=== PATIENT | male | born 1950 | race Caucasian/White ===

== ENCOUNTER 2016-09-08 09:34 | Emergency (ER) | payer OTHER, MEDICAID ==
[~2016-09-08] VITALS: Ht 170.2 cm; Wt 94.0 kg
[~2016-09-08 09:34] MED LIST: ASP81 PO; DOXA2TAB61 PO; FLUT16SP17 NASAL; IBUP800T25 PO; LORA10TA PO; OMEP20CA16 PO
[2016-09-08 09:50] VITALS: Ht 170.2 cm; Wt 94.0 kg
[2016-09-08] MEDS ORDERED: UDROBDM PO (10:17)
[2016-09-08] MEDS ORDERED: HYDR-902 PO (10:18)
[2016-09-08] MEDS ORDERED: ACET500C5 PO (10:19)
--- NOTE | 2016-09-08 10:26 | ERD ---
ER Documentation Chief Complaint Date/Time DATE: 09/08/16 TIME: 10:22 Chief Complaint COUGH, SORE THROAT, HEADACHE X3 DAYS HPI This 65-year-old male who presents to emergency department today leading of cough, sore throat and headache for the past 3 days. Patient states he couldn't take well. Denies any fevers or chills. States that her daughter is sick with the flu. States he thinks he has the flu. States he has taken some Naprosyn. ROS All systems reviewed and are negative except as per history of present illness. Medications Home Meds Active Scripts Acetaminophen* (Tylophen*) 500 Mg Capsule, 1 CAP PO Q6H Y for PAIN AND OR ELEVATED TEMP, #30 CAP Prov:VARGHESE GUILLAUME PA-C 09/08/16 Hydrocodone/Acetaminophen ([place] 10-325 Tablet) 1 Each Tablet, 1 TAB PO Q6H Y for PAIN, #10 TAB Prov:VARGHESE GUILLAUME PA-C 09/08/16 Guaifenesin-Dextromethorphan* (Robitussin* DM) 100MG/10MG/5ML Syrup, 10 ML PO Q4H Y for COUGH for 5 Days, ML Prov:VARGHESE GUILLAUME PA-C 09/08/16 Aspirin (Aspirin) 81 Mg Chew, 81 MG PO DAILY, #30 TAB.CHEW Prov:SITA TORRES 10/07/15 Reported Medications Fluticasone Propionate* (Fluticasone Propionate* Nasal) 50 Mcg/[place] - 16 Gm [place].susp, 1 SPRAY NASAL DAILY, #1 BOTTLE TO EACH NOSTRIL 10/07/15 Ibuprofen* (Motrin*) 800 Mg Tab, 800 MG PO Q8 Y for PAIN LEVEL 6-10, TAB 10/07/15 Omeprazole* (Omeprazole*) 20 Mg Capsule.dr, 20 MG PO DAILY 03/19/13 Loratadine (Loratadine) 10 Mg Tablet, 10 MG PO DAILY 03/19/13 Doxazosin Mesylate* (Cardura*) 2 Mg Tablet, 2 MG PO DAILY 03/19/13 Allergies Allergies: Coded Allergies: No Known Allergies (Verified Allergy, Mild, 09/25/13) PMhx/Soc History of Surgery: Yes (GALL BLADDER,HIP REPLACEMENT) Anesthesia Reaction: No Hx Neurological Disorder: No Hx Respiratory Disorders: No Hx Cardiac Disorders: No Hx Psychiatric Problems: No Hx Miscellaneous Medical Probl: Yes (PROSTATE) Hx Alcohol Use: No Hx Substance Use: No Hx Tobacco Use: No Physical Exam Vitals Vital Signs Date Time Temp Pulse Resp B/P Pulse Ox O2 Delivery O2 Flow Rate FiO2 09/08/16 09:50 98.1 81 18 125/69 96 Physical Exam Const: No acute distress, laughing Head: Atraumatic Eyes: Normal Conjunctiva ENT: Ears TMs normal. Nose no drainage. Throat with mild erythema no exudate Neck: Full range of motion..~ No meningismus. Resp: Clear to auscultation bilaterally. No absent breath sounds. No wheezing. Cardio: Regular rate and rhythm, no murmurs Abd: Soft, non tender, non distended. Normal bowel sounds Skin: No petechiae or rashes Back: No midline or flank tenderness Ext: No cyanosis, or edema Neur: Awake and alert Psych: Normal Mood and Affect Procedures/MDM Is a 65-year-old male who presents to the emergency department today with flulike symptoms versus viral URI. Patient has been exposed to flu by his daughter. On physical exam patient is afebrile and otherwise well-appearing. He is laughing in the exam room. His respirations are 18 and his oxygen saturation is 96%. Do not fill the patient requires further laboratory workup or imaging. I have low suspicion for strep pharyngitis, peritonsillar abscess, retropharyngeal abscess, otitis media, PNA, sinusitis, abscess, meningitis, sepsis, or other acute infectious bacterial process. Patient has a prescription for Naprosyn and has already been taking on therefore did give blood short course of [place] for home. He was instructed to take that for severe headache or pain or continue taking Naprosyn or Tylenol. I have also given a prescription for Robitussin. She has had these symptoms for 3 days and I feel that he is out of the window to prescribe Tamiflu at this time. I have explained this to the patient. At this time the patient is stable for discharge and outpatient management. Patient should follow up with their PCP in the next 1-2 days. They may return to the emergency department sooner for any persistent or worsening of symptoms. Patient understood and agreed with the plan. Departure Diagnosis: Primary Impression: Flu-like symptoms Condition: Fair Patient Instructions: Influenza (Adult) Additional Instructions: Llame al doctor MAANA y maria del carmen griselda HONG PARA DENTRO DE 1-2 HA.Dgale a la secretaria que nosotros le instruimos hacer esta hong.Avise o llame si jaramillo condicin se empeora antes de la hong. Regresa aqui si peor o no mejor. Take [place] for severe pain otherwise take Tylenol or Naprosyn that you already have Take Robitussin for cough VARGHESE GUILLAUME PA-C Sep 08, 2016 10:26
== END 2016-09-08 10:38 | disposition home or self-care (01) ==
LOC: FTE 09:34
DX: R05 Cough (principal); J02.9 Acute pharyngitis, unspecified; R51 Headache; Z79.82 Long term (current) use of aspirin; Z96.649 Presence of unspecified artificial hip joint
CPT/HCPCS: 99283

== ENCOUNTER 2017-05-02 17:58 | Emergency (ER) | payer OTHER, MEDICAID ==
[~2017-05-02] VITALS: Ht 177.8 cm; Wt 112.0 kg
[~2017-05-02 17:58] MED LIST changes: +ACET500C5 PO; -ASP81 PO; +ASPI81TA3 PO; +HYDR-902 PO; +UDROBDM PO
[2017-05-02 18:03] VITALS: Ht 177.8 cm; Wt 112.0 kg
[2017-05-02] MEDS ORDERED: ASPIRIN 325 MG TAB PO STA (20:59)
[2017-05-02] MEDS ORDERED: MULT-40 PO (21:28)
[2017-05-02 21:47] VITALS: BP 144/80; PULSE 78; RESP 17; TEMP 98.3
[2017-05-02 21:53] LABS: BASOPHILS % 0.5 % (0.0-2.0); EOSINOPHILS # 0.2 10^3/ul (0.0-0.5); EOSINOPHILS % 2.2 % (0.0-7.0); HEMATOCRIT 44.3 % (42.0-52.0); LYMPHOCYTES # 2.9 10^3/ul (0.8-2.9); LYMPHOCYTES % 35.9 % (15.0-51.0); MEAN CORPUSCULAR HEMOGLOBIN 29.6 pg (29.0-33.0); MEAN CORPUSCULAR HGB CONC 33.9 g/dl (32.0-37.0); MEAN CORPUSCULAR VOLUME 87.5 fl (82.0-101.0); MEAN PLATELET VOLUME 10.6 fl (7.4-10.4); MONOCYTE # 0.7 10^3/ul (0.3-0.9); NEUTROPHILS % 52.2 % (39.0-77.0); PLATELET COUNT 223 10^3/UL (140-415); RED BLOOD COUNT 5.06 10^6/ul (4.70-6.10); RED CELL DISTRIBUTION WIDTH 12.9 % (11.5-14.5); WHITE BLOOD COUNT 8.2 10^3/ul (4.8-10.8)
[2017-05-02 22:15] LABS: ANION GAP 17 (8-16); BLOOD UREA NITROGEN 13 mg/dl (7-20); CALCIUM 9.3 mg/dl (8.4-10.2); CARBON DIOXIDE 24 mmol/L (21-31); CHLORIDE 103 mmol/L (97-110); CREATININE 0.68 mg/dl (0.61-1.24); GLUCOSE 94 mg/dl (70-220); SODIUM 140 mmol/L (135-144)
[2017-05-02] MEDS ORDERED: LIDOCAINE/MYLANTA 40 ML BTL PO ONE (22:30)
--- NOTE | 2017-05-03 04:24 | RADRPT ---
PROCEDURE: XR Chest. CLINICAL INDICATION: Chest pain TECHNIQUE: AP Portable chest. COMPARISON: 10/07/2015 chest x-ray FINDINGS: The soft tissues and bones are normal. No focal infiltrates, masses or effusions are present. The mediastinum and the heart size are normal. No focal infiltrates, masses, or effusions are noted. T he mediastinum and heart are normal. No pneumothorax is present. IMPRESSION: 1. No radiographic evidence for acute cardiopulmonary disease RPTAT: HDC .Candice Avalos MD, MD Date Time Electronically viewed and signed by .Candice Avalos MD, MD on 05/02/2017 22:34 .C/
[2017-05-03 05:22] LABS: B-TYPE NATRIURETIC PEPTIDE 29 PG/ML (0-125)
--- NOTE | 2017-05-03 06:10 | ERD ---
DATE OF SERVICE: 05/02/2017 HISTORY OF PRESENT ILLNESS: This 66-year-old male presented for potential chest pain described as a sharp pain that had been present for 12 hours. He has no shortness of breath and no nausea. He denies any cardiac risk factors. He has a regular primary care doctor that he sees, but does not have hypertension, hypercholesterolemia, or diabetes. He has never smoked cigarettes. No cough. REVIEW OF SYSTEMS: Twelve point review of systems negative except as in HPI. PAST MEDICAL HISTORY: Negative. PAST SURGICAL HISTORY: Negative. FAMILY HISTORY: Noncontributory. SOCIAL HISTORY: Denies tobacco, alcohol, or drugs. PHYSICAL EXAMINATION: VITAL SIGNS: Afebrile, vital signs stable. GENERAL: No acute distress, smiling and pleasant. CARDIOVASCULAR: Regular rate and rhythm. No murmurs. LUNGS: Clear to auscultation bilaterally. ABDOMEN: Soft, nontender, nondistended. No masses. SKIN: No rashes or lesions. NEURO: Alert and oriented x3, no focal deficits. EXTREMITIES: No cyanosis, clubbing, or edema. Distal pulses intact all 4 extremities. MEDICAL DECISION MAKING/EMERGENCY DEPARTMENT COURSE: Chest x-ray interpretation: I see no acute process. I see no widened mediastinum, no infiltrate, no pulmonary edema, no fractures. EKG interpretation: Normal sinus rhythm, rate of 79, normal axis, normal intervals, no ST or T-wave changes concerning for acute ischemia. Normal EKG. Laboratory analysis: The patient's laboratories are within normal limits and troponin is not detectable in his blood. Because he has had this chest pain for greater than 12 hours, it is unlikely to be cardiac in origin, especially in a patient with no risk factors except for age. He was given 325 mg aspirin in the ER. I am going to discharge him with primary care followup in the next few days and instructions to call his doctor to get an appointment for an outpatient echocardiogram. I am discharging him with Zantac. DISCHARGE DIAGNOSIS: Chest pain. DISPOSITION: Home in stable condition. Dictated By: Roosevelt Gallego DO /veronica/salma /Document#: [id number]
[2017-05-03 06:39] LABS: TROPONIN-I < 0.012 ng/ml (0.00-0.12)
== END 2017-05-03 06:43 | disposition home or self-care (01) ==
LOC: E/R 17:58
DX: R07.9 Chest pain, unspecified (principal)
CPT/HCPCS: 36415; 71010; 80048; 83880; 84484; 85025; 93005

== ENCOUNTER 2018-11-04 08:46 | Emergency (ER) | payer OTHER, MEDICAID ==
[~2018-11-04] VITALS: Wt 88.1 kg
[~2018-11-04 08:46] MED LIST changes: -ACET500C5 PO; -ASPI81TA3 PO; -FLUT16SP17 NASAL; -HYDR-902 PO; -IBUP800T25 PO; -LORA10TA PO; -OMEP20CA16 PO; -UDROBDM PO; +[UNRECOGNIZED DRUG - CODE] PO
[2018-11-04 08:48] VITALS: BP 131/73; PULSE 93; RESP 20
[2018-11-04] MEDS ORDERED: KETOROLAC 30 MG INJ IM STA (09:51)
[2018-11-04] MEDS ORDERED: IBUP-1542 PO (09:52)
[2018-11-04] MEDS ORDERED: ALBU8.5H8 INH (09:52)
--- NOTE | 2018-11-04 10:25 | ERD ---
ER Documentation Chief Complaint Chief Complaint cough, back pain, sore throat, fever, see note HPI 67-year-old man complains of 2 days of sore throat, congestion, mild cough symptoms began mostly last night. He has some body aches as well but denies fevers or chills, no shortness of breath, no chest pain, no abdominal pain, no vomiting or diarrhea. Patient denies recent travel or sick contacts. ROS All systems reviewed and are negative except as per history of present illness. Medications Home Meds Active Scripts Albuterol Sulfate* (Proair HFA*) 8.5 Gm Hfa.aer.ad, 2 PUFF INH Q6H PRN for WHEEZING AND SOB, #1 INHALER Prov:MERLENE LEWIS MD 11/04/18 Ibuprofen* (Motrin*) 600 Mg Tab, 600 MG PO Q8 PRN for PAIN AND/OR INFLAMMATION, #30 TAB Prov:MERLENE LEWIS MD 11/04/18 Reported Medications Multivitamin with Iron (Multivitamins with Iron) 1 Each Tablet, 1 EACH PO DAILY, TAB 05/02/17 Doxazosin Mesylate* (Cardura*) 2 Mg Tablet, 2 MG PO DAILY 03/19/13 Allergies Allergies: Coded Allergies: No Known Allergies (Verified Allergy, Mild, 05/02/17) PMhx/Soc History of Surgery: Yes (GALL BLADDER,HIP REPLACEMENT) Anesthesia Reaction: No Hx Neurological Disorder: No Hx Respiratory Disorders: No Hx Cardiac Disorders: Yes (HTN) Hx Psychiatric Problems: No Hx Miscellaneous Medical Probl: Yes (PROSTATE) Hx Alcohol Use: No Hx Substance Use: No Hx Tobacco Use: No Smoking Status: Former smoker FmHx Family History: No diabetes Physical Exam Vitals Vital Signs Date Temp Pulse Resp B/P (MAP) Pulse Ox O2 O2 Flow FiO2 Time Delivery Rate 11/04/18 98.3 79 17 119/74 98 Room Air 10:05 (89) 11/04/18 98.9 93 20 131/73 97 08:48 (92) Physical Exam Const: No acute distress, afebrile Head: Atraumatic Eyes: Normal Conjunctiva ENT: Normal External Ears, Nose and Mouth. Neck: Full range of motion. No meningismus. Resp: Clear to auscultation bilaterally Cardio: Regular rate and rhythm, no murmurs Abd: Soft, non tender, non distended. Normal bowel sounds Skin: No petechiae or rashes Back: No midline or flank tenderness Ext: No cyanosis, or edema Neur: Awake and alert x3, no focal deficits or facial asymmetry Psych: Normal Mood and Affect Results 24 hrs Current Medications Medications Dose Sig/Sadia Start Time Status Last (Trade) Ordered Route PRN Stop Time Admin Dose Reason Admin Ketorolac 30 mg ONCE STAT 11/04/18 DC 11/04/18 Tromethamine IM 09:51 09:57 (Toradol) 11/04/18 09:52 Procedures/MDM Patient has a normal physical exam and vital signs are normal including temperature. I administered Toradol 30 mg IM x1 and provided reassurance. Patient will follow-up with PMD for continued outpatient management. Differential diagnoses considered, included but not limited to acute coronary syndrome, pulmonary embolism, aortic dissection, abdominal aortic aneurysm, sepsis, stroke, meningitis, encephalitis, pneumonia, appendicitis, cholecystitis, bowel obstruction, pyelonephritis, nephrolithiasis, cystitis, as well as metabolic, hematologic, and electrolyte abnormalities. As well as abscess, cellulitis, fractures, and dislocations. Patient feels much better at this time, and vital signs are normal, symptoms have improved. I did give strict instructions to return to the ED if symptoms continue or worsen, patient will otherwise follow-up with primary care physic rosendo. Patient understood instructions and agreed to plan. Disclaimer: Inadvertent spelling and grammatical errors are likely due to EHR/dictation software use and do not reflect on the overall quality of patient care. Also, please note that the electronic time recorded on this note does not necessarily reflect the actual time of the patient encounter. Departure Diagnosis: Primary Impression: Cough Additional Impression: Acute URI Condition: Good Patient Instructions: Uri, Viral, No Abx (Adult) MERLENE LEWIS MD Nov 04, 2018 10:25
== END 2018-11-04 11:09 | disposition home or self-care (01) ==
LOC: E/R 08:46
DX: J06.9 Acute upper respiratory infection, unspecified (principal); I10 Essential (primary) hypertension; Z96.649 Presence of unspecified artificial hip joint
CPT/HCPCS: 96372; 99284; J1885

== ENCOUNTER 2018-11-15 15:08 | Emergency (ER) | payer OTHER ==
[~2018-11-15] VITALS: Wt 89.9 kg
[~2018-11-15 15:08] MED LIST changes: +ALBU8.5H8 INH; +IBUP-1542 PO
[2018-11-15 15:23] VITALS: BP 130/80; PULSE 75; RESP 17
[2018-11-15] MEDS ORDERED: D-ME473S2 PO (17:56)
[2018-11-15] MEDS ORDERED: IBUP-1542 PO (17:56)
[2018-11-15] MEDS ORDERED: AZIT250T PO (17:56)
--- NOTE | 2018-11-15 17:57 | ERD ---
ER Documentation Chief Complaint Chief Complaint BODYACHES, COUGH, CONGESTION X1 DAY HPI 67-year-old female presents with productive cough for last 1-2 days, body aches, possible tactile fevers but no fever triage. Denies chest pain, vomiting, abdominal pain, additional symptoms. ROS All systems reviewed and are negative except as per history of present illness. Medications Home Meds Active Scripts Azithromycin* (Zithromax*) 250 Mg Tablet, 250 MG PO .ZPACK DIRECTED, #6 TAB TAKE 500 MG (2 TABS) THE FIRST DAY THEN 250 MG (1 TAB) DAYS 2-5 Prov:CARIDAD EARL MD 11/15/18 Ibuprofen* (Motrin*) 600 Mg Tab, 600 MG PO Q6, #15 TAB Prov:CARIDAD EARL MD 11/15/18 Dextromethorphan Hb-Promethazine Hcl* (Promethazine DM* Syrup) 473 Ml Syrup, 5 ML PO Q6 PRN for COUGH for 5 Days, ML Prov:CARIDAD EARL MD 11/15/18 Albuterol Sulfate* (Proair HFA*) 8.5 Gm Hfa.aer.ad, 2 PUFF INH Q6H PRN for WHEEZING AND SOB, #1 INHALER Prov:MERLENE LEWIS MD 11/04/18 Ibuprofen* (Motrin*) 600 Mg Tab, 600 MG PO Q8 PRN for PAIN AND/OR INFLAMMATION, #30 TAB Prov:MERLENE LEWIS MD 11/04/18 Reported Medications Multivitamin with Iron (Multivitamins with Iron) 1 Each Tablet, 1 EACH PO DAILY, TAB 05/02/17 Doxazosin Mesylate* (Cardura*) 2 Mg Tablet, 2 MG PO DAILY 03/19/13 Allergies Allergies: Coded Allergies: No Known Allergies (Verified Allergy, Mild, 05/02/17) PMhx/Soc History of Surgery: Yes (GALL BLADDER,HIP REPLACEMENT) Anesthesia Reaction: No Hx Neurological Disorder: No Hx Respiratory Disorders: No Hx Cardiac Disorders: Yes (HTN) Hx Psychiatric Problems: No Hx Miscellaneous Medical Probl: Yes (PROSTATE) Hx Alcohol Use: No Hx Substance Use: No Hx Tobacco Use: No Smoking Status: Never smoker FmHx Family History: No diabetes, No coronary disease, No other Physical Exam Vitals Vital Signs Date Temp Pulse Resp B/P (MAP) Pulse Ox O2 O2 Flow FiO2 Time Delivery Rate 11/15/18 99.5 75 17 130/80 96 15:23 (97) Physical Exam Const: No acute distress Head: Atraumatic Eyes: Normal Conjunctiva ENT: Normal External Ears, Nose and Mouth. TMs and oropharynx normal. Neck: Full range of motion. No meningismus. Resp: Clear to auscultation bilaterally and rhonchi without rales, wheezing or retractions. Cardio: Regular rate and rhythm, no murmurs Abd: Soft, non tender, non distended. Normal bowel sounds Skin: No petechiae or rashes Back: No midline or flank tenderness Ext: No cyanosis, or edema Neur: Awake and alert Psych: Normal Mood and Affect Procedures/MDM Patient presents with URI symptoms last 2 days. Likely has viral URI. He is requesting antibiotics. Fever, signs of hypoxemia, rest or distress. Patient was counseled on viral versus bacterial causes of URI but wants antibiotics anyway. Will dispense Zithromax, promethazine, ibuprofen despite counseling. The patient was stable with no new complaints during the ER course. Clinically, there is no current evidence to suggest meningitis, sepsis, acute abdomen, pneumonia, stroke, acute coronary syndrome, pulmonary embolism, aortic dissection or any other emergent condition appearing to require further evaluation or hospitalization. Patient counseled regarding my diagnostic impre ssion and care plan. Prior to discharge all questions answered. Pt agrees with treatment plan and understands strict return precautions. Pt is instructed to follow up with primary care provider within 24-48 hours. Precautionary instructions provided including instructions to return to the ER if not improving or for any worsening or changing symptoms or concerns. Departure Diagnosis: Primary Impression: Upper respiratory infection URI type: unspecified URI Qualified Codes: J06.9 - Acute upper respiratory infection, unspecified Condition: Stable Patient Instructions: Bronchitis, Antiobiotic Treatment (Adult) Referrals: DOCTOR,NOT ON STAFF (PCP) Additional Instructions: vamos a tratar para infeccon, adeel probablamente un virus que dura 2-4 [place]. cheque otro vez en el proximo crys para mas simptomas- vomito, dolor, kaya, problemas con respirando, o con jaramillo doctor primario. CARIDAD EARL MD Nov 15, 2018 17:57
== END 2018-11-15 18:19 | disposition home or self-care (01) ==
LOC: FTE 15:08
DX: J06.9 Acute upper respiratory infection, unspecified (principal); I10 Essential (primary) hypertension; Z96.649 Presence of unspecified artificial hip joint
CPT/HCPCS: 99283

== ENCOUNTER 2018-11-21 15:25 | Emergency (ER) | payer OTHER ==
[~2018-11-21] VITALS: Ht 180.3 cm; Wt 88.5 kg
[~2018-11-21 15:25] MED LIST changes: +AZIT250T PO; +D-ME473S2 PO
[2018-11-21 15:40] VITALS: BP 134/78; PULSE 95; RESP 18; Ht 180.3 cm; Wt 88.5 kg
[2018-11-21] MEDS ORDERED: IBUP-1542 PO (17:36)
--- NOTE | 2018-11-21 17:47 | ERD ---
ER Documentation Chief Complaint Chief Complaint left arm pain and states was swollen yesterday HPI Patient is a 67-year-old male with no medical problems who presents with left arm pain and inflammation. He says that it feels like his arm is asleep. The symptoms started yesterday. He tried ibuprofen. He denies trauma. He does complain of a left-sided headache. The patient does have a primary doctor but has not seen the primary doctor as of yet. ROS All systems reviewed and are negative except as per history of present illness. Medications Home Meds Active Scripts Ibuprofen* (Motrin*) 600 Mg Tab, 600 MG PO Q6H PRN for PAIN AND OR ELEVATED TEMP, #30 TAB Prov:LUANNE ARITA MD 11/21/18 Azithromycin* (Zithromax*) 250 Mg Tablet, 250 MG PO .ZPACK DIRECTED, #6 TAB TAKE 500 MG (2 TABS) THE FIRST DAY THEN 250 MG (1 TAB) DAYS 2-5 Prov:CARIDAD EARL MD 11/15/18 Ibuprofen* (Motrin*) 600 Mg Tab, 600 MG PO Q6, #15 TAB Prov:CARIDAD EARL MD 11/15/18 Dextromethorphan Hb-Promethazine Hcl* (Promethazine DM* Syrup) 473 Ml Syrup, 5 ML PO Q6 PRN for COUGH for 5 Days, ML Prov:CARIDAD EARL MD 11/15/18 Albuterol Sulfate* (Proair HFA*) 8.5 Gm Hfa.aer.ad, 2 PUFF INH Q6H PRN for WHEEZING AND SOB, #1 INHALER Prov:MERLENE LEWIS MD 11/04/18 Ibuprofen* (Motrin*) 600 Mg Tab, 600 MG PO Q8 PRN for PAIN AND/OR INFLAMMATION, #30 TAB Prov:MERLENE LEWIS MD 11/04/18 Reported Medications Multivitamin with Iron (Multivitamins with Iron) 1 Each Tablet, 1 EACH PO DAILY, TAB 05/02/17 Doxazosin Mesylate* (Cardura*) 2 Mg Tablet, 2 MG PO DAILY 03/19/13 Allergies Allergies: Coded Allergies: No Known Allergies (Verified Allergy, Mild, 05/02/17) PMhx/Soc History of Surgery: Yes (GALL BLADDER,HIP REPLACEMENT) Anesthesia Reaction: No Hx Neurological Disorder: No Hx Respiratory Disorders: No Hx Cardiac Disorders: Yes (HTN) Hx Psychiatric Problems: No Hx Miscellaneous Medical Probl: Yes (PROSTATE) Hx Alcohol Use: No Hx Substance Use: No Hx Tobacco Use: No Smoking Status: Never smoker FmHx Family History: No diabetes Physical Exam Vitals Vital Signs Date Temp Pulse Resp B/P (MAP) Pulse Ox O2 O2 Flow FiO2 Time Delivery Rate 11/21/18 98.6 95 18 134/78 95 15:40 (96) Physical Exam Const: No acute distress Head: Atraumatic Eyes: Normal Conjunctiva ENT: Normal External Ears, Nose and Mouth. Neck: Full range of motion. No meningismus. Resp: Clear to auscultation bilaterally Cardio: Regular rate and rhythm, no murmurs Abd: Soft, non tender, non distended. Normal bowel sounds Skin: No petechiae or rashes Back: No midline or flank tenderness Ext: No cyanosis, or edema Neur: Awake and alert, all 3 nerve roots of the bilateral upper extremities intact, audience development manager strength is equal bilaterally, no pronator drift, cranial nerves II through XII are intact, no slurred speech Psych: Normal Mood and Affect Procedures/MDM CT brain negative per radiology. Ultrasound of the left upper semi-negative for DVT per radiology. Patient is a 67-year-old male presents with left arm pain. CT of the head shows no sign of mass, bleed, or obvious stroke. Ultrasound of the left upper tremor is negative for DVT. There is no sign of infection. There is no sign of neurologic changes on physical exam. I believe outpatient management is appropriate at this time. The patient may have a superficial thrombophlebitis. He will be treated with ibuprofen. He should follow-up with his primary doctor within 1 week for reevaluation. He can return sooner for any worsening symptoms. At this point I doubt intra-cranial mass, stroke, or bleed. Departure Diagnosis: Primary Impression: Thrombophlebitis Additional Impression: Pain of left arm Condition: Fair Patient Instructions: Thrombophlebitis, Superficial Referrals: Your doctor Additional Instructions: Llame al doctor nombrado marlene (Referral Sources) MAANA y maria del carmen griselda HONG PARA DENTRO DE GRISELDA SEMANA. Dgale a la secretaria que nosotros le instruimos hacer esta hong.Avise o llame si jaramillo condicin se empeora antes de la hong. LUANNE ARITA MD Nov 21, 2018 17:47
== END 2018-11-21 17:58 | disposition home or self-care (01) ==
LOC: E/R 15:25
DX: M79.602 Pain in left arm (principal); I80.9 Phlebitis and thrombophlebitis of unspecified site; I10 Essential (primary) hypertension; R40.2142 Coma scale, eyes open, spontaneous, at arrival to emergency department; R40.2362 Coma scale, best motor response, obeys commands, at arrival to emergency department; R51 Headache; Z96.649 Presence of unspecified artificial hip joint
CPT/HCPCS: 70450; 93971